=== PATIENT | male | born 1945 | race Caucasian/White ===

== ENCOUNTER 2020-05-09 12:59 | Emergency (ER) | payer MEDICARE, OTHER, SELFPAY ==
[2020-05-09 13:13] VITALS: BP 125/61; PULSE 61; RESP 16; TEMP 36.5; O2SAT 96
--- NOTE | 2020-05-09 13:17 | DI.RAD.S_ITS ---
PROCEDURE: XR FINGER LT MIN 2V INDICATIONS: cut by table saw TECHNIQUE: AP hand, 2 views of the 2nd finger(s) acquired. COMPARISON: None. FINDINGS: Bones: There is a laceration seen in the distal phalanx of the 2nd finger, with missing bone and soft tissue bone fragments. Degenerative changes are seen throughout, which are most prominent involving the 1st carpometacarpal joint. Milder degenerative changes are seen elsewhere. Soft tissues: Associated soft tissue injury is seen. IMPRESSION: Laceration/amputation injury of the distal phalanx of the 2nd finger. Dictated by: Markie Austin M.D. on 05/09/2020 at 12:58 Approved by: Markie Austin M.D. on 05/09/2020 at 12:59
[2020-05-09] MEDS: TET,DIPH,PERTUSS(ACELL),VAC/PF 0.5 ML SYRINGE IM (15:19)
--- NOTE | 2020-05-09 15:19 | ED.UPPEXIN ---
HPI - Extremity Injury (Upper) <Cris Bryan PA-C - Last Filed: 05/09/20 23:10> General Chief Complaint: Extremity Injury, Upper Stated Complaint: wound to index finger left hand Time Seen by Provider: 05/09/20 15:18 Source: patient Mode of arrival: Ambulatory Limitations: no limitations History of Present Illness HPI narrative: This is a 74-year-old gentleman who presents to the emergency department complaining of injury to his left index finger sustained by a table saw today. He states that he had his left hand forward in front of the blade guiding piece of wood and the wood caught and pulled back towards the blade bringing his finger tip into the blade. He was able to control the bleeding with direct pressure and wrapping with a clean towel. He denies any other injury, this is an isolated complaint. He says his pain is not severe ?I can tolerate a lot of pain? does not want anything for pain except maybe for later after he is discharged. He denies any previous injury or surgery to this finger. MD complaint: injury to: left and finger (index) Onset (ago): hour(s) (1) Other Extremity Injury: Left: fingers (2nd) Other injuries: none Place: home Severity: moderate Severity scale (1-10): 3 Relieving factors: immobilization and rest Exacerbating factors: movement of extremity Context: other (Table saw blade injury) Associated symptoms: denies other symptoms Treatments prior to arrival: bandage Related Data Previous Rx's Medication Instructions Recorded amoxicillin-pot clavulanate 1 tab PO BID #14 tab 05/09/20 oxycodone-acetaminophen [Percocet] 1 tab PO Q4-6H PRN #14 tab 05/09/20 Review of Systems <Cris Bryan PA-C - Last Filed: 05/09/20 23:10> Review of Systems Narrative: GENERAL: Denies chills, fatigue, malaise, fever, sweats. HEENT: Denies sinus pain, ear pain, sore throat, difficulty swallowing, dizziness. RESPIRATORY: Denies dyspnea, cough, wheezing, hemoptysis, sputum. CARDIOVASCULAR: Denies chest pain, palpitations, orthopnea, edema, GASTROINTESTINAL: Denies nausea, vomiting, abdominal pain, diarrhea, constipation, melena. : Denies dysuria, frequency, incontinence, hematuria, urinary retention. MUSCULOSKELETAL: Positive for partial avulsion to his left index finger at the tip, denies weakness, joint pain, or bony pain SKIN: See MSK Denies rash, skin lesions, or other NEUROLOGIC: Denies weakness, headache, numbness, change in speech, confusion, seizures, incoordination. PSYCHIATRIC: No concerning psychosocial issues. 12 point review of systems is negative except for those stated above ROS Unobtainable: All systems reviewed & are unremarkable except as noted in HPI and below Patient History <Cris Bryan PA-C - Last Filed: 05/09/20 23:10> Social History Smoking Status: Never smoker Smoking Status: Never smoker alcohol intake frequency: 0-2 drinks per day Substance Use Type: does not use Exam <Cris Bryan PA-C - Last Filed: 05/09/20 23:10> Narrative Exam Narrative: GENERAL: 74 year old patient appears stated age. Well-nourished, well-developed patient, in mild distress. HEAD: Atraumatic. Normocephalic. EYES: Pupils equal round and reactive. Extraocular motions intact. No scleral icterus. No injection or drainage. ENT: Nose without bleeding, purulent drainage. Throat without erythema, tonsillar hypertrophy or exudate. Airway patent. NECK: Trachea midline. Non tender CARDIOVASCULAR: Regular rate and rhythm without murmurs, gallops, or rubs. RESPIRATORY: Clear to auscultation. Breath sounds equal bilaterally. No wheezes, rales, or rhonchi. GASTROINTESTINAL: Abdomen soft, non-tender, nondistended. EXTREMITIES: The left 1st finger has a partial amputation with a 3 cm deep laceration running from the lateral to distal finger a anteriorly crossing the finger pad and the medial finger with nail involvement, the nail is shattered, attached but fractured in multiple places. The distal finger tip just anterior to the distal nail is intact with good color, pink and well perfused, and good alignment with the anterior finger pad. Bleeding is controlled. Sensation is reduced, capillary refill cannot be assessed due to damage to nail, range of motion at the DIP is intact. No edema or other joint tenderness. BACK: Nontender without deformity or crepitance. No flank tenderness. NEURO: AOx3. SKIN: No rash or erythema of visible areas Initial Vital Signs Initial Vital Signs: Vital Signs Temperature 97.7 F 05/09/20 13:13 Pulse Rate 61 05/09/20 13:13 Respiratory Rate 16 05/09/20 13:13 Blood Pressure 125/61 05/09/20 13:13 Pulse Oximetry 96 05/09/20 13:13 <Ashanti Roland MD - Last Filed: 05/15/20 07:32> Initial Vital Signs Initial Vital Signs: Vital Signs Temperature 97.7 F 05/09/20 13:13 Pulse Rate 61 05/09/20 13:13 Respiratory Rate 16 05/09/20 13:13 Blood Pressure 125/61 05/09/20 13:13 Pulse Oximetry 96 05/09/20 13:13 Procedures <Cris Bryan PA-C - Last Filed: 05/09/20 23:10> Laceration Repair Laceration 1: Site: upper extremity and hand Side (If applicable): left Size (cm): 3 Description: irregular (Shattered nail with irregular edged laceration medially and curvilinear, deep laceration laterally, ) Depth: simple, single layer (Bone involvement, deep partial avulsion laceration) Local Anesthetic: lidocaine 1% and with bicarb Amount of anesthesia used (mL): 10 (Digital block) Pre-repair: wound explored, irrigated extensively and wound margins revised (Pieces of shattered nail are removed, proximal nail matrix beneath the cuticle remains partially intact) Skin layer closed with: nylon Size (cm): 5-0 Number of sutures: 12 (None subcutaneous) Scores <Cris Bryan PA-C - Last Filed: 05/09/20 23:10> GCS Dee coma scale eye opening: Spontaneous Dee coma scale verbal response: Orientated [place] coma scale motor response: Obey commands [place] coma scale total score: 15 Course <Cris Bryan PA-C - Last Filed: 05/09/20 23:10> Orders Ordered: Discontinued Medications Diphtheria/Tetanus/Acell Pertussis (Adacel) 0.5 ml IM .ONCE ONE Stop: 05/09/20 14:58 Last Admin: 05/09/20 15:19 Dose: 0.5 ml Documented by: CHRIS Lidocaine/Sodium Bicarbonate (Buffered Lidocaine 10 Ml Syr) 10 ml INJ NOW ONE Stop: 05/09/20 15:39 Last Admin: 05/09/20 15:46 Dose: 10 ml Documented by: CHRIS Vital Signs Vital signs: Vital Signs - 8 hr 05/09/20 16:57 Pulse Rate 64 Respiratory Rate 14 Blood Pressure 163/96 H Pulse Oximetry 100 <Ashanti Roland MD - Last Filed: 05/15/20 07:32> Orders Ordered: Discontinued Medications Diphtheria/Tetanus/Acell Pertussis (Adacel) 0.5 ml IM .ONCE ONE Stop: 05/09/20 14:58 Last Admin: 05/09/20 15:19 Dose: 0.5 ml Documented by: CHRIS Lidocaine/Sodium Bicarbonate (Buffered Lidocaine 10 Ml Syr) 10 ml INJ NOW ONE Stop: 05/09/20 15:39 Last Admin: 05/09/20 15:46 Dose: 10 ml Documented by: CHRIS Vital Signs Vital signs: Vital Signs - 8 hr 05/09/20 16:57 Pulse Rate 64 Respiratory Rate 14 Blood Pressure 163/96 H Pulse Oximetry 100 MDM - Extremity Injury (Upper) <Cris Bryan PA-C - Last Filed: 05/09/20 23:10> Differential Diagnosis Differential diagnosis: Likely dislocation of finger and other (Partial amputation, avulsion, laceration, fracture, open fracture, vascular damage, nerve damage) Medical Records Attestation: I reviewed the patient's medical records. Imaging Data Extremity x-ray #1: Attestation: I personally reviewed and interpreted this imaging study as follows: Radiologist's Impression: [address] [address] XRay Report Signed Patient: Bradley Dodd PMR#: [id number] : 8Acct:[id number] Age/Sex: 74 / MDate of Service: 05/09/20 Loc: ED Accession Number: [id number] Procedure: XR finger LT min 2V Ordering Provider: Ashanti Roland MD PROCEDURE: XR FINGER LT MIN 2V INDICATIONS: cut by table saw TECHNIQUE: AP hand, 2 views of the 2nd finger(s) acquired. COMPARISON: None. FINDINGS: Bones: There is a laceration seen in the distal phalanx of the 2nd finger, with missing bone and soft tissue bone fragments. Degenerative changes are seen throughout, which are most prominent involving the 1st carpometacarpal joint. Milder degenerative changes are seen elsewhere. Soft tissues: Associated soft tissue injury is seen. IMPRESSION: Laceration/amputation injury of the distal phalanx of the 2nd finger. Dictated by: Markie Austin M.D. on 05/09/2020 at 12:58 Approved by: Markie Austin M.D. on 05/09/2020 at 12:[address] [facility] Narrative Medical decision making narrative: Well-appearing 74-year-old presents with complaints of partial amputation of his left 1st finger at the distal tip sustained from a table saw today with bleeding controlled with direct pressure. Wound is cleaned, washed, tetanus is updated, imaging reviewed with attending physician, who also examined the patient, advises removal of the nail fragments and suturing. Distal partial amputation /open fracture with good circulation intact, repaired as above and procedures. Patient advised to follow-up with orthopedics, and at minimum his PCP for wound recheck as well as suture removal. Antibiotic prophylaxis prescribed. Patient is in agreement with the plan, all questions answered. Discharge Plan Departure Patient Disposition: Home Clinical Impression: Partial traumatic amputation of finger through phalanx Qualifiers: Encounter type: initial encounter Qualified Code(s): S68.629A - Partial traumatic transphalangeal amputation of unspecified finger, initial encounter Laceration of left index finger w/o foreign body with damage to nail Qualifiers: Encounter type: initial encounter Qualified Code(s): S61.311A - Laceration without foreign body of left index finger with damage to nail, initial encounter Discharge Date/Time: 05/09/20 17:20 Instructions: DI for Laceration Repair -- Complex Suture, DI for Laceration Repair -- Finger Activity Restrictions/Additional Instructions: Thank you for letting us be part of your care in the emergency department today you partially amputated your finger however you do appear to have good circulation still and anticipate you should heal okay, you do have fragments of bone were your bone was cut that remain inside the end of your finger. It is very important that you take the prescribed antibiotics to avoid developing a infection or infection of your bone. I have also prescribed medication to help you with pain, I recommend that you keep the area bandaged and use the finger splint that we have provided to help give it protection. You should follow-up with the orthopedic provider listed here in your paperwork, you also need to have your sutures removed and your wound rechecked in 8-10 days. You can also see your primary care provider but it would be preferable to see the photo specialist. In the meantime please keep the area clean and dry monitor for signs of infection which can include increased swelling, heat, increased tenderness or pain redness or streaking going up your finger, or pus from your finger. Please also monitor for other symptoms such as fevers, chills body aches nausea vomiting or any other symptoms of concern to you and do not hesitate to seek medical care or return to the emergency department for evaluation if these arise. There is no evidence of an emergent or life threatening illness at this time, but follow up with your doctor in 1-2 days is recommended nonetheless to continue to rule out serious underlying causes of your symptoms. Please call the office for an appointment. Please return to the Emergency Department for any worsening or persistent symptoms. Please take medications as directed. Prescriptions: New oxycodone-acetaminophen [Percocet] 5-325 mg tablet 1 tab PO Q4-6H PRN (Reason: pain) Qty: 14 RF: 0 amoxicillin-pot clavulanate 875-125 mg tablet 1 tab PO BID Qty: 14 RF: 0 Referrals: Tish Orr MD [Physician] - (partial amputation L 2nd digit distal with bone fragments) <Ashanti Roland MD - Last Filed: 05/15/20 07:32> [facility] ED Attending [facility] Attestation: I was immediately available in the department for consultation throughout this patient's visit. I agree with documentation as above. Ashanti Roland MD
[2020-05-09] MEDS: LIDO 1%/SOD BICARB 8.4% (10ML) 10 ML SYRINGE INJ (15:46)
[2020-05-09 16:57] VITALS: BP 163/96; PULSE 64; RESP 14; O2SAT 100
== END 2020-05-09 17:20 | disposition home or self-care (01) ==
PROVIDERS: Emergency Provider Student in an Organized Health Care Education/Training Program
DX: S68.629A Partial traumatic transphalangeal amputation of unspecified finger, initial encounter (principal); W29.3XXA Contact with powered garden and outdoor hand tools and machinery, initial encounter; Z23 Encounter for immunization
CPT/HCPCS: 13132; 29130; 73140; 90471; 99283; 99284; 90715

== ENCOUNTER → 2021-10-21 14:33 | Outpatient (CLI) | payer MEDICARE, OTHER, SELFPAY ==
--- NOTE | 2021-10-21 | DI.ECHO.S_ITS ---
[facility] +---------+ : : [address] : : : : [id number] : : : : Phone: [phone]+ Echocardiogram Report + + :Name: MAYCOL ALLEN Study Date: 10/21/2021 Height: 76 in : :[facility] ReadingLocation: Weight: 207 lb : : Gender: Male BSA: 2.2 m2 : :: 1945 Age: 76 yrs BP: 141/88 mmHg: :Reason For Study: EDEMA : :Ordering Physician: TIFFANIE, : :HARI Performed By: Teodora Mirza : :Referring: HARI MORENO : + + Interpretation Summary Normal left ventricle size with ejection fraction 55-60%. Mildly dilated left atrium. Mild aortic regurgitation. Mild tricuspid regurgitation. Mildly dilated aortic root and ascending aorta. Procedure: A two-dimensional transthoracic echocardiogram with color flow and Doppler was performed. The study quality was technically adequate. There is no prior echocardiogram noted for this patient. The patient was in sinus bradycardia with heart rates between 56-62 bpm during the exam. Left Ventricle: The left ventricle is normal in size and wall thickness. The ejection fraction is estimated to be 55-60%. There are no focal wall motion abnormalities. Diastolic parameters suggest a relaxation abnormality of the left ventricle, consistent with probable normal filling pressures. Right Ventricle: The right ventricle is normal in size and function. Atria: The left atrium is mildly dilated. Right atrial size is normal. There is no Doppler evidence for an interatrial shunt. Mitral Valve: The mitral valve is normal in structure and function. There is trace mitral regurgitation. Aortic Valve: The aortic valve is trileaflet. The aortic valve opens well. There is no aortic valve stenosis. There is mild aortic regurgitation. Tricuspid Valve: The tricuspid valve is normal in structure and function. There is mild tricuspid regurgitation. Pulmonic Valve: The pulmonic valve leaflets are thin and pliable; valve motion is normal. There is mild pulmonic regurgitation. Great Vessels: The aortic root is mildly dilated. The ascending aorta is mildly enlarged. The IVC is of normal diameter and collapses greater than 50% with a sniff. This suggests a low right atrial pressure of 3 mm Hg. Pericardium/ Pleura There is no pericardial effusion. There is no pleural effusion. MMode/2D Measurements & Calculations LVIDd: 5.1 cm LVOT diam: 2.3 cm LVIDs: 3.7 cm Ao root diam: 4.5 cm FS: 28.3 % asc Aorta Diam: 4.0 cm IVSd: 1.0 cm Ao Arch Diam (Prox Trans): 2.4 cm LVPWd: 1.0 cm LV estes. diameter/BSA (cm/m^2): 2.3 LV sys. diameter/BSA (cm/m^2): 1.6 LA A2 area: 23.1 cm2 RA long axis: 6.4 cm LA A4 area: 18.0 cm2 RA area: 17.1 cm2 LA length (vol): 4.5 cm RA vol: 38.5 ml LA vol: 78.0 ml RA : 17.1 ml/m2 LA vol index: 34.7 ml/m2 IVC diam: 1.5 cm RVD1 (basal): 3.3 cm RVD2 (mid): 2.9 cm TAPSE: 2.3 cm Doppler Measurements & Calculations Ao V2 max: 110.3 cm/sec LVOT Max Jf: 76.1 cm/sec Ao V2 mean: 81.7 cm/sec LV V1 max P.3 mmHg Ao max P.9 mmHg LV V1 VTI: 15.3 cm Ao mean P.9 mmHg DILMA(I,D): 3.4 cm2 Ao V2 VTI: 18.0 cm DILMA(V,D): 2.8 cm2 sev ratio: 0.85 DILMA indexed to BSA (cm^2/m^2): 1.5 MV E max jf: 38.4 cm/sec PA V2 max: 107.3 cm/sec MV A max jf: 73.3 cm/sec PA V2 mean: 76.7 cm/sec MV E/A: 0.52 PA mean P.6 mmHg Med Peak E' Jf: 5.7 cm/sec PA pr(Accel): 22.5 mmHg E/E' med: 6.7 Lat Peak E' Jf: 3.3 cm/sec E/E' lat: 11.8 E/e' average: 9.2 MV dec time: 0.30 sec SV(LVOT): 61.6 ml Electronically signed by: Jv Ferrari on Reading Physician:10/21/2021 05:52 PM
== END ==
PROVIDERS: Referring Provider Family Medicine; Visit Provider Family Medicine
DX: I08.2 Rheumatic disorders of both aortic and tricuspid valves (principal); I77.810 Thoracic aortic ectasia; R60.9 Edema, unspecified
CPT/HCPCS: 93306

== ENCOUNTER 2024-07-05 13:33 | Day surgery (SDC) | payer MEDICARE, OTHER, SELFPAY ==
[2024-07-04 11:41] VITALS: BMI 25.2
[2024-07-05] MEDS: LACTATED RINGERS 1,000 ML 42 ML IV (14:10)
[2024-07-05] MEDS: ACETAMINOPHEN 325 MG TABLET 975 MG PO (14:19)
[2024-07-05 14:27] VITALS: BP 124/71; PULSE 62; RESP 18; TEMP 36.3; O2SAT 100; BMI 10.9
--- NOTE | 2024-07-05 15:13 | PM.PREOP ---
Pre-operative Note COVID-19 COVID-19 status: Not tested Interval Note History & Physical reviewed/Exam performed by Physician: Yes Changes to H&P: No ASA Class (for procedural sedation): II
[2024-07-05] MEDS: CEFAZOLIN 2 GM/100 ML PREMIX 100 ML IV (15:50)
--- NOTE | 2024-07-05 15:58 | SUR.OPER ---
Supine on padded OR bed and pink pad, head on pillow, arms padded and tucked at sides, legs uncrossed, safety belt at thigh, tape over blanket over lower legs .
[2024-07-05] MEDS: BUPIVACAINE 0.5% W/ EPI (PF) 30 ML VIAL INJ (16:06)
--- NOTE | 2024-07-05 17:03 | PM.OP.1 ---
Operative Date/Time/Diagnoses Date of procedure: 07/05/24 Time of procedure: 17:03 Pre-op diagnosis: Left inguinal hernia Post-op diagnosis: same Procedure & Clinicians Procedure: Laparoscopic left inguinal hernia repair with mesh Same procedure as scheduled: Yes Surgeon: Heber Finch Anesthesia Type: General Operative Notes Procedure in detail: The patient was given preoperative antibiotics. The patient was brought to the operating room, placed on the table in the supine position with the arms tucked and general anesthesia was induced. The abdomen was prepped and draped in the usual fashion. A time-out was performed. A 1 cm transverse incision was created superior to the umbilicus and dissection was carried down to the fascia. The fascia was grasped with a Ly clamp to elevate the abdominal wall. The fascia was scored transversely with cautery. A Peon clamp was used to silva the peritoneum. The Corin port was placed and the abdomen was insufflated to 15 mmHg. The camera was inserted, there was no evidence of any injury from the entry. There was an indirect left inguinal hernia. 5 mm ports were placed under direct vision in the mid left and mid right abdomen. The patient was positioned in Trendelenburg. We created left peritoneal flap. The peritoneum was dissected off the left cord structures and the Waldemar's ligament was exposed. A large left Bard mesh was brought in and placed over the defect with the medial edge against Waldemar's ligament. We then closed the peritoneal flap with a running 3-0 barbed suture. We took one last look around the abdomen and saw no other abnormalities. The suture was removed and accounted for. The 5 mm ports were removed under direct vision. The abdomen was desufflated. The Corin port was removed. Additional local was injected into the fascia and the fascial incision was closed with 2 interrupted 0 Vicryl sutures. The skin incisions were closed with 4 Monocryl, Steri-Strips and Band-Aids. Post-operative Condition: stable Disposition: PACU
[2024-07-05 17:08] VITALS: BP 134/77; PULSE 81; RESP 12; TEMP 36.7; O2SAT 97
[2024-07-05 17:14] VITALS: BP 123/67; PULSE 72; RESP 13; TEMP 36.7; O2SAT 95
[2024-07-05 17:21] VITALS: BP 125/68; PULSE 70; RESP 12; TEMP 36.6; O2SAT 95
[2024-07-05 17:33] VITALS: BP 122/69; PULSE 71; RESP 15; TEMP 36.6; O2SAT 98
== END 2024-07-05 17:49 | disposition home or self-care (01) ==
PROVIDERS: PCP Family Medicine; Referring Provider Surgery; Visit Provider Surgery
PROC: 0YQ64ZZ Repair Left Inguinal Region, Percutaneous Endoscopic Approach (ICD-10-PCS; CPT 49650; principal; 2024-07-05 15:15)
DX: K40.90 Unilateral inguinal hernia, without obstruction or gangrene, not specified as recurrent (principal)
CPT/HCPCS: 49650; J0690; J1100; J1885; J2405; J2704; J3010

== ENCOUNTER 2024-09-02 14:50 | Observation (INO) | payer MEDICARE, OTHER, SELFPAY ==
[2024-09-02] VITALS (10 sets, daily range): BP systolic 125–143; BP diastolic 73–88; PULSE 54–64; RESP 14–24; TEMP 36.4–37.4; O2SAT 96–98; BMI 25.6
--- NOTE | 2024-09-02 15:01 | DI.RAD.S_ITS ---
PROCEDURE: XR CHEST 1V INDICATIONS: chest pain TECHNIQUE: One view of the chest was acquired. COMPARISON: None. FINDINGS: Surgical changes and devices: None. Lungs and pleura: No dense consolidation or pleural effusions. Possible basal atelectasis or scarring. Mediastinum: Normal heart size Bones and chest wall: Degenerative changes IMPRESSION: Possible basal atelectasis versus scarring. No acute radiographic abnormality on this single view study Dictated by: Je Lewis M.D. on 09/02/2024 at 15:58 Approved by: Je Lewis M.D. on 09/02/2024 at 15:59
--- NOTE | 2024-09-02 15:05 | EKG_ITS ---
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
--- NOTE | 2024-09-02 15:06 | ED.DIZZY ---
HPI - Dizziness General Chief Complaint: Dizziness Stated Complaint: Dizzyness Time Seen by Provider: 09/02/24 15:05 Source: patient and family Mode of arrival: Family Vehicle Limitations: no limitations History of Present Illness HPI Narrative: 78-year-old male no reported medical issues presents with complaint of feeling balance and sort of walking off to the right. Patient states this started about 130 this afternoon has been persistent. States he does not really have a headache he does feel dizzy he denies any difficulty or worsening symptoms with movement of his head suddenly. No ear pain. No chest pain or shortness of breath. No nausea vomiting. No lightheadedness or passing out. No numbness, tingling or weakness of extremities no changes to speech or facial droop. His appreciates that he sort of goes to the side when he walks no dragging or weakness of extremities are noted for her either. Patient states no daily medications. Had a hernia repair about a month ago and prior history of knee replacement. No aspirin or thinners. No tobacco has a glass of wine nightly, no recreational drugs. Related Data Home Medications Medication Instructions Recorded Confirmed multivitamin (Daily Multi-Vitamin 1 tab PO DAILY 06/29/24 07/25/24 tablet) Previous Rx's Medication Instructions Recorded sodium,potassium,mag sulfates 17.5 See Rx Instructions PO .COMPLEX 08/25/24 gram-3.13 gram-1.6 gram oral soln #354 mL (Suprep Bowel Prep Kit) Allergies Allergy/AdvReac Type Severity Reaction Status Date / Time No Known Drug Allergies Allergy Verified 07/25/24 10:37 Review of Systems Review of Systems ROS Unobtainable: All systems reviewed & are unremarkable except as noted in HPI and below Patient History Medical History Pelvic fracture (1998) Surgical History Hx of hernia repair H/O pelvic surgery (1998) Social History household members: spouse Smoking Status: Never smoker alcohol intake: current Smoking Status: Never smoker alcohol intake frequency: 0-2 drinks per day Exam Narrative Exam Narrative: GEN: well nourished, well appearing male, alert and oriented x 3, patient appears to be in mild distress. HEENT: Atraumatic, pupils are equal round reactive to light, extraocular movements are intact, nares are clear, TMs are clear with no fluid, there is no conjunctival pallor. Throat is clear without any exudates, erythema, tonsillar enlargement or uvular deviation, no facial droop HEART: Regular rate and rhythm without murmur, clicks, rubs. No carotid bruits, pulses are equal in upper and lower extremities LUNGS:Lungs clear to auscultation, no wheezes, rales, crackles, chest moves symmetrically ABD:bowel sounds normal, soft, non-tender, no guarding, rebound, rigidity, no masses noted, no hepatosplenomegaly :No CVA tenderness MSCL: Non-tender, no muscle atrophy, muscles strength 5/5 upper and lower extremities, full range of motion. NEURO:CN 2-12 intact, sensation normal, finger nose finger test normal, heel lambert test normal. Initial Vital Signs Initial Vital Signs: Vital Signs Temperature 98 F 09/02/24 14:54 Pulse Rate 62 09/02/24 14:54 Respiratory Rate 16 09/02/24 14:54 Blood Pressure 143/88 H 09/02/24 14:54 Pulse Oximetry 98 09/02/24 14:54 Oxygen Delivery Method Room Air 09/02/24 14:54 Scores NIH Stroke Scale Level of Conciousness: Alert, keenly responsive Ask month/age: Answers both questions correctly. Open/close eyes, close hand: Performs both tasks correctly Best gaze horizontal: Normal Visual garner: No visual loss Facial palsy: Normal symetrical movement Left arm drift: No drift for full 10 sec Right arm drift: No drift for full 10 sec Left leg drift: No drift for full 5 sec Right leg drift: No drift for full 5 sec Limb ataxia: Absent Sensory on face/arms/legs: Normal, no sensory loss Best language: No aphasia, normal Dysarthria: Normal Extinction or inattention: No abnormality Total NIH Stroke scale score: 0 Course Orders Ordered: ED Orders 09/02/24 15:01 XR chest 1V Stat EKG-12 Lead Stat 09/02/24 15:05 Complete Blood Count AUTO DIFF Stat Comprehensive Metabolic Panel Stat Ethanol (ETOH) Stat Lipase Stat Magnesium Stat NT-proBNP (BNP-Adult 18+) Stat PTT Partial Thromboplastin Tito Stat Prothrombin Time INR Stat Troponin & CK Cardiac Panel Stat 09/02/24 15:[address] angio head and neck Stat 09/02/24 15:58 MR head/brain wo con Stat 09/02/24 16:05 Urine Drug Screen, Rapid Stat 09/02/24 16:06 Urinalysis and Microscopic Stat Acetaminophen (Acetaminophen 325 Mg Tablet) 650 mg PO Q6H PRN PRN Reason: Fever/Mild Pain (1-3) Aspirin (Aspirin Ec 81 Mg Tablet) 81 mg PO DAILY REYES Atorvastatin Calcium (Atorvastatin 20 Mg Tablet) 80 mg PO BEDTIME REYES Clopidogrel Bisulfate (Clopidogrel 75 Mg Tablet) 75 mg PO DAILY [facility] Heparin Sodium (Porcine) (Heparin 5,000 Unit/Ml Vial) 5,000 unit SUBCUT BID REYES Naloxone HCl (Naloxone 0.4 Mg/Ml Vial) 0.2 mg IV Q2MIN PRN PRN Reason: Opiate Reversal Discontinued Medications Aspirin (Aspirin 81 Mg Chew Tab) 324 mg PO NOW ONE Stop: 09/02/24 15:02 Aspirin (Aspirin 81 Mg Chew Tab) 324 mg PO NOW ONE Stop: 09/02/24 15:35 Last Admin: 09/02/24 15:56 Dose: 324 mg Documented By: SAL Aspirin (Aspirin 81 Mg Chew Tab) 324 mg PO NOW ONE Stop: 09/02/24 15:02 Last Admin: 09/02/24 15:59 Dose: Not Given Documented By: PASTORA Clopidogrel Bisulfate (Clopidogrel 75 Mg Tablet) 300 mg PO NOW ONE Stop: 09/02/24 15:59 Last Admin: 09/02/24 16:01 Dose: 300 mg Documented By: [facility] Vital Signs Vital signs: Vital Signs - 8 hr 09/02/24 14:54 09/02/24 14:58 09/02/24 14:59 Temperature 98 F Pulse Rate 62 64 Respiratory Rate 16 17 Blood Pressure 143/88 H 143/88 H Pulse Oximetry 98 97 Oxygen Delivery Method Room Air 09/02/24 14:59 09/02/24 15:00 09/02/24 15:00 Temperature Pulse Rate 63 62 Respiratory Rate 19 15 Blood Pressure 125/78 Pulse Oximetry 97 97 Oxygen Delivery Method 09/02/24 15:22 09/02/24 15:22 09/02/24 15:30 Temperature Pulse Rate 62 60 Respiratory Rate 24 16 Blood Pressure 139/73 Pulse Oximetry 96 97 Oxygen Delivery Method 09/02/24 16:00 Temperature Pulse Rate 63 Respiratory Rate 20 Blood Pressure Pulse Oximetry 98 Oxygen Delivery Method MDM - Dizziness Lab Data 09/02/24 15:05 09/02/24 15:05 Labs: Lab Results 09/02/24 09/02/24 09/02/24 Range/Units 15:05 16:05 16:06 WBC 7.5 (4.5-11.0) X10^3/uL RBC 4.37 L (4.5-5.9) X10^6/uL Hgb 13.9 (13.5-17.5) g/dL Hct 40.8 L (41-53) % MCV 93.5 (80-100) fL MCH 31.8 (26-34) PG MCHC 34.0 (30-36) % RDW 14.2 (11.6-14.8) % Plt Count 170 (150-400) X10^3/uL Neut % (Auto) 51.7 (50-75) % Lymph % (Auto) 38.2 (25-40) % [place] % (Auto) 7.7 (3-14) % Eos % (Auto) 1.5 L (2-4) % Baso % (Auto) 0.9 (0-2) % Neut # (Auto) 3900 (5480-7101) /uL Lymph # (Auto) 2900 (4589-7746) /uL [place] # (Auto) 600 (0-900) /uL Eos # (Auto) 100 (0-450) /uL Baso # (Auto) 100 (0-100) /uL PT 12.3 (9.4-12.5) SECONDS INR 1.1 (0.9-1.3) APTT 32 (25.1-36.5) SECONDS Sodium 135 L (137-145) mmol/L Potassium 4.4 (3.4-5.1) mmol/L Chloride 104 (98-107) mmol/L Carbon Dioxide 26 (22-32) mmol/L BUN 23 H (9-20) mg/dL Creatinine 1.05 (0.66-1.25) mg/dL Estimated GFR > 60 (>60) mL/min BUN/Creatinine Ratio 21.9 (6-22) Glucose 92 (80-110) mg/dL Calcium 9.5 (8.4-10.2) mg/dL Magnesium 1.9 (1.6-2.3) mg/dL Total Bilirubin 0.6 (0.2-1.3) mg/dL AST 39 (17-59) IU/L ALT 28 (<50) IU/L Alkaline Phosphatase 78 (38-126) U/L Total Creatine Kinase 146 (55-170) U/L Troponin I < 0.012 (0.01-0.034) ng/mL NT-Pro-B Natriuret Pep 56 (<450) pg/mL Total Protein 7.0 (6.3-8.2) g/dL Albumin 4.3 (3.5-5.0) g/dL Globulin 2.7 (1.7-4.1) g/dL Albumin/Globulin Ratio 1.6 (1.0-2.8) Lipase 99 (23-300) U/L Urine Color Yellow Urine Appearance Clear Ur Specific [place] 1.010 (1.000-1.035) Urine Protein Negative (Negative) Urine Glucose (UA) Negative (Negative) g/dL Urine Ketones Negative (NEGATIVE) Urine Occult Blood Negative (Negative) Urine Nitrate Negative (Negative) Urine Bilirubin Negative (NEGATIVE) Urine Urobilinogen 0.2 (0.2) E.U./dL Ur Leukocyte Esterase Negative (NEGATIVE) Urine RBC None seen (0-5/HPF) Urine WBC None seen (0-5/HPF) Ur Squamous Epith Cells None seen (0-5/HPF) Urine Bacteria None seen (None) Ur Culture Indicated? Cult not indicated Vol Urine Centrifuged 10ml (spun) U Opiates 300ng/mL cut Negative (Negative) Ur Oxycodone Screen Negative (Negative) Urine Methadone Screen Negative (Negative) Ur Barbiturates Screen Negative (Negative) U Tricyclic Antidepress Negative (Negative) Ur Phencyclidine Scrn Negative (Negative) Ur Amphetamines Screen Negative (Negative) U Methamphetamines Scrn Negative (Negative) Ur MDMA Scrn (Ecstasy) Negative (Negative) U Benzodiazepines Scrn Negative (Negative) Urine Cocaine Screen Negative (Negative) U Marijuana (THC) Screen Negative (Negative) Urine pH Normal 5.5 (Normal) Urine Specific [place] Normal (Normal) Ethyl Alcohol < 10 ( - 10) mg/dL Ur Creatinine Normal (Normal) Point of Care Testing Glucose POC 85 ECG Data Attestation: I personally reviewed and interpreted this ECG as follows: Prior ECG tracings: not available for review Interpretation: Sinus rhythm occasional PVC rate of 65 HI 92, QRS 82 QTC 432, no acute ST changes appreciated. No priors for comparison. MDM Narrative Medical decision making narrative: 78-year-old male presents with complaint of feeling off balance and sort of walking off to the side he has no other real complaints he notices some dizziness or what sounds like some vertigo. He has a pressure of 143/88 otherwise normal vital signs. Patient's NIH at this time is 0. On ambulation trial patient clearly lists to the right no clear obvious weakness but he clearly has difficulty with ambulation he states he has not had any improvement since onset. Blood sugar poc is 86. Code stroke initiated. CT head non-con, negative for acute change. Radiology called results at 1526 CT head and neck angio is negative. Labs white count of 7.5 hemoglobin of 13.9 platelets of 170. INR is 1.1, CMP shows a sodium 135 potassium 4.4 chloride of 104 CO2 of 26 BUN 23 creatinine 1.05 glucose 92 LFTs are negative troponin less 0.012. BNP 56. Urine EKG shows sinus rhythm. No priors. Page tele stroke/[facility] [place] @ [id number]. Spoke with Dr. Beltran with Neurology reviewed patient's NIH is 0 but clearly has some difficulty with walking his right side. Tends to go were fall to the right side. After discussion she does not recommend TNK based on patient's low NIH score and notes patient has or less than 3 or 4 there higher risk for bad outcome versus benefit from receiving TNK. Notes if patient is adamant to receive TNK she would be happy to meet with them. She does recommend aspirin 325 mg and Plavix 300 mg today followed by 81 mg aspirin daily and 75 mg Plavix times 21 days for dual antiplatelet therapy as well as stroke workup. Discussed with patient and family patient is not quite sure he would want received TNK either and after discussion feels comfortable this plan. We will try to obtain MR here in the department. Spoke with Dr. Burrell, hospitalist who accepts for suspected stroke. Discharge Plan Departure Patient Disposition: Admitted as Observation Clinical Impression: Acute CVA (cerebrovascular accident), Balance problem Admit Date/Time: 09/02/24 16:10 Admit Provider: Jesus Alberto Burrell
--- NOTE | 2024-09-02 15:12 | DI.CT.S_ITS ---
PROCEDURE: CT STROKE INDICATIONS: off balance, leans R when walking onset 1330 TECHNIQUE: Noncontrast 4.5 mm thick angled axial sections acquired from the foramen magnum to the vertex, with coronal reformats. For radiation dose reduction, the following was used: automated exposure control, adjustment of mA and/or kV according to patient size. COMPARISON: None. FINDINGS: Image quality: Diagnostic. CSF spaces: Basal cisterns are patent. No extra-axial fluid collections. The ventricles are symmetric in size and shape. Brain: No intracranial bleeds or masses. There is cerebral volume loss for age, with resultant ventricular and sulcal prominence. There are moderate periventricular and deep white matter chronic small vessel ischemic changes. There is intracranial internal carotid artery atherosclerosis. Skull and face: Calvarium and visualized facial bones appear intact, without suspicious lesions. Sinuses: Remote paranasal surgery. Right maxillary sinus mucosal thickening and minimal fluid. IMPRESSION: No acute intracranial pathology. Minimal acute on chronic sinus disease. Comment: Findings were discussed with Dr. Figueroa on 09/02/2024 at 1526 hours This study fulfills neurological imaging criteria for inclusion or exclusion of acute stroke therapies based on available published neurological guidelines. Dictated by: Sanjay Mendenhall M.D. on 09/02/2024 at 15:22 Approved by: Sanjay Mendenhall M.D. on 09/02/2024 at 15:26
--- NOTE | 2024-09-02 15:12 | DI.CT.S_ITS ---
PROCEDURE: CT ANGIO HEAD AND NECK INDICATIONS: off balance, leans R when walking onset 1330 TECHNIQUE: After the administration of intravenous contrast, 1 mm thick sections acquired from the aortic arch through the [place] of [place]. 3-dimensional kfilfil-zlxfeeram-saankzycwg (MIP) and/or volume rendering reformats were acquired of the central intracranial vasculature and neck separately. For radiation dose reduction, the following was used: automated exposure control, adjustment of mA and/or kV according to patient size. COMPARISON: [facility], CT, CT STROKE, 09/02/2024, 15:14. FINDINGS: Image quality: Diagnostic HEAD ANGIOGRAPHY: Anterior circulation: ICAs: Mild cavernous and supraclinoid calcifications ACAs: Patent. The left SOUMYA is slightly larger than the right. MCAs: Patent AComm: No aneurysm Venous sinuses: No occlusive thrombus where visualized Posterior circulation: Dominance: Left Vertebral arteries: Patent Basilar artery: Patent PComms: No aneurysm dosier operator: High-grade focal narrowing in the mid left ECOLOGY PROFESSOR in the P2 segment NECK ANGIOGRAPHY: Aortic arch and subclavian arteries: Mild calcifications CCAs: Mild calcifications ICA origins (by NASCET criteria): Mild calcifications without narrowing ICAs: Patent ECAs: Patent Vertebral arteries: Patent. Mild calcification at the left origin. The right vertebral artery terminates in PICA before the basilar confluence. Soft tissues: No significant mass, aneurysm, or lymphadenopathy Lung apices: No apical pneumothorax. Bones: There are degenerative changes. Partial opacification of the right maxillary with hyperostosis. 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 Basilar vertebral circulation is otherwise patent, with left dominant supply. No large vessel occlusion in the anterior circulation. If there is further concern, consider MRI. Partial opacification of the right maxillary, likely chronic with hyperostosis. Any quantitative measurements of stenosis were performed using NASCET criteria. Dictated by: Je Lewis M.D. on 09/02/2024 at 16:01 Approved by: Je Lewis M.D. on 09/02/2024 at 16:06
[2024-09-02 15:15] LABS: Add Manual Diff / Slide Review NO; Basophils Absolute Auto 100 /uL (0-100); Basophils Percent Auto 0.9 % (0-2); Eosinophils Absolute Auto 100 /uL (0-450); Eosinophils Percent Auto 1.5 % (2-4); Hematocrit 40.8 % (41-53); Hemoglobin 13.9 g/dL (13.5-17.5); Lymphocytes Absolute Auto 2900 /uL (1100-4500); Lymphocytes Percent Auto 38.2 % (25-40); Mean Corpuscular Hemoglobin 31.8 PG (26-34); Mean Corpuscular Volume 93.5 fL (80-100); Monocytes Absolute Auto 600 /uL (0-900); Monocytes Percent Auto 7.7 % (3-14); Neutrophils Absolute Auto 3900 /uL (1500-7000); Neutrophils Percent Auto 51.7 % (50-75); Platelet Count 170 X10^3/uL (150-400); Red Blood Cell Count 4.37 X10^6/uL (4.5-5.9); Red Cell Distribution Width 14.2 % (11.6-14.8); White Blood Cell Count 7.5 X10^3/uL (4.5-11.0)
[2024-09-02 15:24] LABS: INR 1.1 (0.9-1.3); Prothrombin Time 12.3 SECONDS (9.4-12.5)
[2024-09-02 15:27] LABS: PTT Partial Thromboplastin Tim 32 SECONDS (25.1-36.5)
[2024-09-02 15:30] LABS: Alanine Aminotransferase 28 IU/L (<50); Albumin 4.3 g/dL (3.5-5.0); Albumin Globulin Ratio 1.6 (1.0-2.8); Alkaline Phosphatase 78 U/L (38-126); Aspartate Aminotransferase 39 IU/L (17-59); BUN Creatinine Ratio 21.9 (6-22); Bilirubin Total 0.6 mg/dL (0.2-1.3); Blood Urea Nitrogen 23 mg/dL (9-20); Calcium 9.5 mg/dL (8.4-10.2); Carbon Dioxide 26 mmol/L (22-32); Chloride 104 mmol/L (98-107); Creatine Kinase 146 U/L (55-170); Estimated Glomerular Filt Rate > 60 mL/min (>60); Globulin 2.7 g/dL (1.7-4.1); Glucose 92 mg/dL (80-110); HEMOLYSIS < 15 (0-50); Lipase 99 U/L (23-300); Magnesium 1.9 mg/dL (1.6-2.3); Potassium 4.4 mmol/L (3.4-5.1); Sodium 135 mmol/L (137-145)
[2024-09-02 15:38] LABS: Ethanol (ETOH) < 10 mg/dL
[2024-09-02 15:42] LABS: NT-proBNP (BNP-Adult 18+) 56 pg/mL (<450); Troponin I < 0.012 ng/mL (0.01-0.034)
[2024-09-02] MEDS: ASPIRIN 81 MG CHEW TAB 324 MG PO (15:56)
--- NOTE | 2024-09-02 15:58 | DI.MRI.S_ITS ---
PROCEDURE: MR HEAD/BRAIN WO CON INDICATIONS: balance/ambulation problem/leans to R TECHNIQUE: Noncontrast axial T1 spin echo, axial T2 fast spin echo, sagittal and axial FLAIR, coronal T2 fast spin echo, axial gradient echo, axial diffusion and ADC through the brain. COMPARISON: , CT, CT STROKE, 09/02/2024, 15:14. FINDINGS: Image quality: Diagnostic CSF spaces: Basal cisterns are patent. Lateral ventricles are symmetric. Volume: Volume loss. Periventricular white matter signal abnormality most commonly seen with small vessel disease. These findings are [id number] Brain: No confluent area of edema. There is no acute infarct on diffusion images. No significant hematoma. Craniofacial structures: Partially seen right maxillary opacity. Lens replacements. IMPRESSION: No acute diffusion restriction to indicate infarct. No acute hematoma. Dictated by: Je Lewis M.D. on 09/02/2024 at 16:41 Approved by: Je Lewis M.D. on 09/02/2024 at 16:43
[2024-09-02] MEDS: CLOPIDOGREL 75 MG TABLET 300 MG PO (16:01)
--- NOTE | 2024-09-02 16:22 | DI.ECHO.S_ITS ---
[facility] +---------+ Hospital : : [address] : : [place] : : [id number] : : Phone: [phone] Echocardiogram Report + + :Name: MAYCOL ALLEN Study Date: 09/03/2024 Height: 75 in : :Hospital ReadingLocation: Weight: 205 lb : : Gender: Male BSA: 2.2 m2 : :: 1945 Age: 78 yrs BP: 143/75 mmHg: :Reason For Study: CVA : :Ordering Physician: KEYLA, : :TAYLOR Cotter Performed By: Cuco Machado : :Referring: TAYLOR RAMIRES : + + Interpretation Summary The left ventricle is normal in size. Left ventricular systolic function is borderline reduced. The ejection fraction is estimated to be 45-50%. LVEF has decreased since prior study. Probably hypokinesis along the basal to mid inferolateral segments. Wall motion abnormality is new since prior study. Diastolic parameters suggest a relaxation abnormality of the left ventricle, consistent with probable normal filling pressures. The right ventricle is mildly dilated. The right ventricular systolic function is normal. The right ventricular systolic pressure is estimated to be at least 34 mmHg based on an estimated right atrial pressure of 8 mm Hg. The left atrial size is normal. There is mild aortic regurgitation. There is no other significant valvular heart disease. The aortic root is mildly dilated. The ascending aorta is mildly enlarged. Procedure: A two-dimensional transthoracic echocardiogram with color flow and Doppler was performed. The study quality was technically good. Comparison is made with the echocardiogram of 10/21/2021. The patient was in normal sinus rhythm during the exam. Left Ventricle: The left ventricle is normal in size. There is normal left ventricular wall thickness. There is no ventricular septal defect visualized. Left ventricular systolic function is borderline reduced. The ejection fraction is estimated to be 45-50%. Probably hypokinesis along the basal to mid inferolateral segments. Wall motion abnormality is new since prior study. Diastolic parameters suggest a relaxation abnormality of the left ventricle, consistent with probable normal filling pressures. Right Ventricle: The right ventricle is mildly dilated. The right ventricular systolic function is normal. Atria: The left atrial size is normal. The right atrium is mildly dilated. There is no Doppler evidence for an interatrial shunt. Mitral Valve: The mitral valve leaflets appear normal. There is no evidence of stenosis, fluttering, or prolapse. There is trace mitral regurgitation. Aortic Valve: The aortic valve is trileaflet. The aortic valve opens well. There is mild aortic regurgitation. Tricuspid Valve: The tricuspid valve leaflets are thin and pliable. There is trace tricuspid regurgitation. The right ventricular systolic pressure is estimated to be at least 34 mmHg based on an estimated right atrial pressure of 8 mm Hg. Pulmonic Valve: The pulmonic valve is not well seen, but is grossly normal. There is no pulmonic valvular regurgitation. There is no other significant valvular heart disease. Great Vessels: The aortic root is mildly dilated. The ascending aorta is mildly enlarged. The pulmonary artery is not well visualized, but is probably normal size. The IVC is dilated (diameter is greater than 2.1 cm) yet it collapses greater than 50% with a sniff. This suggests a right atrial pressure of 8 mm Hg. Pericardium/ Pleura There is no pericardial effusion. MMode/2D Measurements & Calculations LVIDd: 5.8 cm LVOT diam: 2.4 cm LVIDs: 4.4 cm Ao root diam: 4.2 cm FS: 23.6 % asc Aorta Diam: 4.0 cm EPSS: 1.4 cm IVSd: 0.99 cm LVPWd: 1.0 cm LV estes. diameter/BSA (cm/m^2): 2.6 LV sys. diameter/BSA (cm/m^2): 2.0 LA A2 area: 21.5 cm2 RA long axis: 6.9 cm LA A4 area: 17.5 cm2 RA area: 25.4 cm2 LA length (vol): 5.1 cm RA vol: 79.8 ml LA vol: 62.1 ml RA : 36.0 ml/m2 LA vol index: 28.0 ml/m2 IVC diam: 2.9 cm RVD1 (basal): 4.6 cm RVD2 (mid): 4.2 cm TAPSE: 1.8 cm Doppler Measurements & Calculations Ao V2 max: 123.2 cm/sec LVOT Max Jf: 95.2 cm/sec Ao V2 mean: 88.3 cm/sec LV V1 max P.6 mmHg Ao max P.1 mmHg LV V1 VTI: 20.0 cm Ao mean P.4 mmHg DILMA(I,D): 3.4 cm2 Ao V2 VTI: 25.9 cm DILMA(V,D): 3.4 cm2 sev ratio: 0.77 DILMA indexed to BSA (cm^2/m^2): 1.5 MV E max jf: 35.6 cm/sec TR max jf: 253.0 cm/sec MV A max jf: 75.4 cm/sec TR max P.6 mmHg MV E/A: 0.47 PA V2 max: 71.3 cm/sec Med Peak E' Jf: 4.1 cm/sec PA V2 mean: 49.8 cm/sec E/E' med: 8.8 PA mean P.1 mmHg Lat Peak E' Jf: 4.4 cm/sec PA pr(Accel): 15.6 mmHg E/E' lat: 8.0 E/e' average: 8.4 MV dec time: 0.33 sec SV(LVOT): 87.8 ml Reading Physician:10:10 AM
--- NOTE | 2024-09-02 16:22 | P.HP_ITS ---
History of Present Illness History of Present Illness Date Patient Seen: 09/02/24 Time Patient Seen: 17:48 Chief complaint: Dizzyness Narrative: He was a 79-year-old male who is otherwise healthy. He developed acute imbalance this afternoon when o'clock any kept veering to the right while trying to walk. He denies diplopia, headache, numbness or weakness of an arm or a leg. He also denies spinning or a boat rocking sensation. The patient presented to the ED where he had a negative CTA (except for Moderate to high-grade narrowing of the left P2 segment) and negative CT head. He had an NIH score of 0 although his gait did vera to the right. Tele stroke recommended no lytics. He arrived to the floor with improved symptoms and has never had TIA symptoms in the past. He does not smoke, his father did have a stroke at an unknown age. He drinks about 3 glasses of wine a day. He was on no chronic prescriptions and denies history of diabetes, or hypertension. He denies a history of positional vertigo or other types of vertigo. No recent URI symptoms. [facility] Medical History Pelvic fracture (1998) Surgical History Hx of hernia repair H/O pelvic surgery (1998) Social History household members: spouse Smoking Status: Never smoker alcohol intake: current Meds Home Medications and Allergies Home Medications Medication Instructions Recorded Confirmed Type multivitamin (Daily Multi-Vitamin 1 tab PO DAILY 06/29/24 07/25/24 History tablet) sodium,potassium,mag sulfates 17.5 See Rx Instructions PO .COMPLEX 08/25/24 Rx gram-3.13 gram-1.6 gram oral soln #354 mL (Suprep Bowel Prep Kit) Allergies Allergy/AdvReac Type Severity Reaction Status Date / Time No Known Drug Allergies Allergy Verified 07/25/24 10:37 Review of Systems Review of Systems Narrative: All else reviewed and otherwise unremarkable except as noted in the history and physical. Exam Vital Signs (past 8 hours): - 09/02/24 14:54 09/02/24 14:58 09/02/24 14:59 Temperature 98 F Pulse Rate 62 64 Respiratory Rate 16 17 Blood Pressure 143/88 H 143/88 H Pulse Oximetry 98 97 Oxygen Delivery Method Room Air 09/02/24 14:59 09/02/24 15:00 09/02/24 15:00 Temperature Pulse Rate 63 62 Respiratory Rate 19 15 Blood Pressure 125/78 Pulse Oximetry 97 97 Oxygen Delivery Method 09/02/24 15:22 09/02/24 15:22 09/02/24 15:30 Temperature Pulse Rate 62 60 Respiratory Rate 24 16 Blood Pressure 139/73 Pulse Oximetry 96 97 Oxygen Delivery Method Oxygen Delivery Method Room Air Narrative Exam Narrative: NAD, alert and oriented, fluent speech, calm. Normocephalic skull, EOMI, anicteric sclera, symmetric pupils. Oropharynx unremarkable, no droop. Neck supple, midline trachea, no adenopathy. Lungs clear, normal rate and effort. Heart regular, no murmur gallop or rub. Abdomen is soft, non distended and non tender. Extremities are free of edema. Skin is free of rash or lesions. Joints are not swollen or deformed. Judgment appears to be normal. Neuro: Cranial nerves are normal, gaze is conjugate. No diplopia. No facial droop. Negative pronator drift, normal arm and leg strength. Normal straight leg raises. Normal rapid alternating movements. Judgment is normal, language is normal. Objective ECG Impression: Sinus rhythm with occasional premature ventricular complexes Imaging Multiple studies:: Radiologist's impression: MRI brain: No acute diffusion restriction to indicate infarct. No acute hematoma. CT brain: No acute intracranial pathology. Minimal acute on chronic sinus disease. CTA head and neck: Moderate to high-grade narrowing of the left P2 segment. Basilar vertebral circulation is otherwise patent, with left dominant supply. No large vessel occlusion in the anterior circulation. If there is further concern, consider MRI. Partial opacification of the right maxillary, likely chronic with hyperostosis. Labs 09/02/24 15:05 09/02/24 15:05 Labs: Laboratory Results - last 24 hr 09/02/24 15:05 WBC 7.5 RBC 4.37 L Hgb 13.9 Hct 40.8 L MCV 93.5 MCH 31.8 MCHC 34.0 RDW 14.2 Plt Count 170 Neut % (Auto) 51.7 Lymph % (Auto) 38.2 [place] % (Auto) 7.7 Eos % (Auto) 1.5 L Baso % (Auto) 0.9 Neut # (Auto) 3900 Lymph # (Auto) 2900 [place] # (Auto) 600 Eos # (Auto) 100 Baso # (Auto) 100 PT 12.3 INR 1.1 APTT 32 Sodium 135 L Potassium 4.4 Chloride 104 Carbon Dioxide 26 BUN 23 H Creatinine 1.05 Estimated GFR > 60 BUN/Creatinine Ratio 21.9 Glucose 92 Calcium 9.5 Magnesium 1.9 Total Bilirubin 0.6 AST 39 ALT 28 Alkaline Phosphatase 78 Total Creatine Kinase 146 Troponin I < 0.012 NT-Pro-B Natriuret Pep 56 Total Protein 7.0 Albumin 4.3 Globulin 2.7 Albumin/Globulin Ratio 1.6 Lipase 99 Ethyl Alcohol < 10 Assessment & Plan Assessment & Plan narrative: 1. High suspicion for a posterior circulation TIA, present on admission and improved. CTA reveals Moderate to high-grade narrowing of the left P2 segment. Plan: -dual antiplatelet therapy for 21 days, start high dose statin. -screening A1c, TSH. -monitor blood pressure, permissive hypertension. -Q shift NIH score Anticipate 1 night in the hospital, observation status. If his symptoms completely improve, I suspect after an echo tomorrow he may be able to discharge home on oral therapy. He lives in [place] with his , she was his proxy decision maker. Full resuscitation. Time-Based Coding :: 35 min spent with patient and on the chart (including review of chart, obtaining history, exam, reviewing outside data, placing orders, documenting exam and treatment plan, and counseling patient) on 09/02. Quality MIPS - Admit I confirm the patient?s Advance Care Plan is present, Code status is documented, Surrogate decision maker is in patient?s record [If Yes, STOP here]: Yes MIPS - Meds 'Current medications' to include all prescriptions, [id number] products, herbals, cannabis/cannabidiol products, and vitamin/mineral/dietary (nutritional) supplements. I have utilized all available resources to obtain, update, or review the patient?s current medications. [If Yes, STOP here]: Yes
[2024-09-02 16:28] LABS: Ur Creatinine Normal (Normal); Ur Specific Gravity Normal (Normal); Urine pH Normal (Normal)
[2024-09-02 16:29] LABS: Urine Amphetamines Negative (Negative); Urine Barbiturates Negative (Negative); Urine Benzodiazepines Negative (Negative); Urine Cocaine Negative (Negative); Urine MDMA Negative (Negative); Urine Methadone Negative (Negative); Urine Methamphetamines Negative (Negative); Urine Opiates Negative (Negative); Urine Oxycodone Negative (Negative); Urine Phencyclidine Negative (Negative); Urine THC Negative (Negative); Urine Tricyclic Antidepressant Negative (Negative)
[2024-09-02 17:02] LABS: Appearance Urine UA CLEAR; Bilirubin Urine UA NEGATIVE (NEGATIVE); Color Urine UA YELLOW; Glucose Urine UA NEGATIVE (Negative); Ketones Urine UA NEGATIVE (NEGATIVE); Leukocyte Esterase Urine UA NEGATIVE (NEGATIVE); Nitrite Urine UA NEGATIVE (Negative); Occult Blood Urine UA NEGATIVE (Negative); Protein Urine UA NEGATIVE (Negative); Urobilinogen Urine UA 0.2 E.U./dL (0.2); pH Urine UA 5.5 (4.5-8.0)
[2024-09-02 17:11] LABS: Bacteria Urine None Seen; Culture Indicated Urine Cult Not Indicated; RBC Urine None Seen (0-5/HPF); Squamous Epithelial Cell Urine None Seen (0-5/HPF); Urine Volume 10mL (spun); WBC Urine None Seen (0-5/HPF)
--- NOTE | 2024-09-02 18:57 | PC.NURSE ---
Patient is A&Ox4, VSS, afebrile on RA (SB 50's on telemetry). He reports feeling dizzy with ambulating, and changing positions. He verbalizes understanding to use call light with ambulating. Admission assesment completed. He tolerated the general diet dinner well.
[2024-09-02] MEDS: HEPARIN 5,000 UNIT/ML VIAL 5000 UNIT SUBCUT (20:16)
[2024-09-02] MEDS: ATORVASTATIN 20 MG TABLET 80 MG PO (20:16)
[2024-09-03 03:00] VITALS: BP 104/59; PULSE 56; RESP 18; TEMP 37; O2SAT 96
[2024-09-03 05:51] LABS: Add Manual Diff / Slide Review NO; Basophils Absolute Auto 100 /uL (0-100); Eosinophils Absolute Auto 200 /uL (0-450); Hematocrit 39.3 % (41-53); Hemoglobin 13.3 g/dL (13.5-17.5); Lymphocytes Absolute Auto 2100 /uL (1100-4500); Mean Corpuscular HGB Conc 33.8 % (30-36); Mean Corpuscular Hemoglobin 31.8 PG (26-34); Monocytes Absolute Auto 500 /uL (0-900); Monocytes Percent Auto 8.7 % (3-14); Neutrophils Absolute Auto 2900 /uL (1500-7000); Neutrophils Percent Auto 50.3 % (50-75); Platelet Count 168 X10^3/uL (150-400); Red Blood Cell Count 4.19 X10^6/uL (4.5-5.9); Red Cell Distribution Width 14.1 % (11.6-14.8); White Blood Cell Count 5.7 X10^3/uL (4.5-11.0)
[2024-09-03 05:57] LABS: Hemoglobin A1C% w Est Avg Glu 5.5 % (4.0-6.0)
[2024-09-03 06:05] LABS: BUN Creatinine Ratio 20.5 (6-22); Blood Urea Nitrogen 18 mg/dL (9-20); Carbon Dioxide 25 mmol/L (22-32); Chloride 106 mmol/L (98-107); Estimated Glomerular Filt Rate > 60 mL/min (>60); Glucose 108 mg/dL (80-110); HEMOLYSIS < 15 (0-50); Potassium 4.2 mmol/L (3.4-5.1); Sodium 134 mmol/L (137-145)
[2024-09-03 08:00] VITALS: BP 143/75; PULSE 61; RESP 14; TEMP 36.9; O2SAT 98
[2024-09-03] MEDS: HEPARIN 5,000 UNIT/ML VIAL 5000 UNIT SUBCUT (08:18)
[2024-09-03] MEDS: ASPIRIN EC 81 MG TABLET PO (08:18)
[2024-09-03] MEDS: CLOPIDOGREL 75 MG TABLET PO (08:18)
--- NOTE | 2024-09-03 10:24 | PT-IP ANOTE ---
per hospitalist during rounds meeting: pt is discharging and not therapy needs. will d/c PT eval order.
--- NOTE | 2024-09-03 10:31 | CM.DANOTE ---
Brief DCP Assessment note Pt is a 78yo M admitted for CVA after having some balance/dizziness. PCP Esa Pedroza Payer Medicare and [employer]. [employer] reviewed EMR. pt lives in [place] with spouse, Leti. indep at baseline. Per hospitalist in morning rounds, pt symptoms resolved. cleared to dc home today, no CM needs. P: dc home today with OP f/u recommended. no identified barriers to safe dc home at this time. CM team will continue to follow as needed LOUIS Hung Discharge Planning/Care Management Advanced directive, confirm from FAMILY Start: 09/02/24 18:50 Freq: Q24H Status: Active Protocol: Document 09/02/24 18:50 SH (Rec: 09/02/24 20:23 SH [id number]) Advance Directive, confirm on record Time 20:23 Person contacted pt Copy received No CM Discharge Assessment Start: 09/03/24 10:28 Freq: Status: Active Protocol: Document 09/03/24 10:30 SL (Rec: 09/03/24 10:31 SL [id number]) Discharge Planning Assessment Assigned Sales Order Specialist LOUIS Dee DPOA/Assigned Designee Name Leti, spouse Contact Information [phone] Advance Directives? Yes Advance Directives on File No History Provided By Patient Prior Living Arrangements House Household Members spouse Type of transporation used prior to Drives own vehicle admit Independent with ADL's Yes Is patient alert and oriented? Yes Barriers to Discharge No Discharge Plan Home Referrals Initiated None needed Review Status In Process Please Provide Date Initial DC 09/03/24 Assessment Was Performed Next Review Type Continued Stay Review
--- NOTE | 2024-09-03 13:20 | P.DS_ITS ---
History of Present Illness History of Present Illness Date Patient Seen: 09/03/24 Time Patient Seen: 09:25 Date of Onset of Symptoms: 09/02/24 Chief complaint: Dizzyness Narrative: He was a 79-year-old male who is otherwise healthy. He developed acute imbalance this afternoon when o'clock any kept veering to the right while trying to walk. He denies diplopia, headache, numbness or weakness of an arm or a leg. He also denies spinning or a boat rocking sensation. The patient presented to the ED where he had a negative CTA (except for Moderate to high-grade narrowing of the left P2 segment) and negative CT head. He had an NIH score of 0 although his gait did vera to the right. Tele stroke recommended no lytics. He arrived to the floor with improved symptoms and has never had TIA symptoms in the past. He does not smoke, his father did have a stroke at an unknown age. He drinks about 3 glasses of wine a day. He was on no chronic prescriptions and denies history of diabetes, or hypertension. He denies a history of positional vertigo or other types of vertigo. No recent URI symptoms. Discharge Providers Provider Date of admission: 09/02/24 16:10 Discharge Date: 09/03/24 Primary care physician: Esa Pedroza MD Consults: 09/02/24 16:20 Consult to Discharge Planning Routine Comment: Consult to Occupational Therapy Evaluate & Treat Comment: Physician Instructions: Evaluate and treat Consult to Physical Therapy Evaluate & Treat Comment: Physician Instructions: Evaluate and Treat Consult to Speech Therapy Evaluate & Treat Comment: Physician Instructions: Evaluate and treat Discharge provider: Sukhdeep Rowell MD Summary Hospital Course Discharge Diagnosis: 1. Transient ischemic attack due to posterior circulation TIA with moderate to high-grade narrowing of the left P2 segment 2. Incidental finding of mildly reduced ejection fraction Hospital Course: 78-year-old man under the primary care of Dr. Esa Pedroza reported that the above-mentioned symptoms resolved within about 4 hours of onset, without recurrence. He was treated with aspirin and clopidogrel with the addition of high-dose atorvastatin therapy. He was monitor on telemetry with no arrhythmias. Blood pressure was within acceptable limits during hospitalization in the 130s/70s range. Outpatient follow-up with his primary care provider's recommended with consideration of noninvasive heart rhythm monitoring to rule out occult atrial fibrillation. The patient was educated regarding emergency management of stroke in the event of recurrent presentation. Recommend dual antiplatelet therapy for 3 weeks, then continue on aspirin monotherapy with atorvastatin. The patient acknowledged understanding, agreement and appreciation of this plan of care. The patient's echocardiography report returned following discharge. Outpatient follow-up and consideration of cardiology consultation regarding mildly reduced ejection fraction is recommended. Status at Discharge Cognitive/behavioral status at discharge: oriented Functional status at discharge: independent ambulation Overall status at discharge: patient is back to baseline Time Spent with Patient Time spent: Greater than 30 minutes Exam Vital Signs (past 8 hours): - 09/03/24 08:00 Temperature 98.4 F Pulse Rate 61 Respiratory Rate 14 Blood Pressure 143/75 H Pulse Oximetry 98 Oxygen Flow Rate 0 Oxygen Delivery Method Room Air Oxygen Flow Rate 0 Narrative Exam Narrative: NAD, alert and oriented, fluent speech, calm. Normocephalic skull, EOMI, anicteric sclera, symmetric pupils. Oropharynx unremarkable, no droop. Neck supple, midline trachea, no adenopathy. Lungs clear, normal rate and effort. Heart regular, no murmur gallop or rub. Abdomen is soft, non distended and non tender. Extremities are free of edema. Skin is free of rash or lesions. Joints are not swollen or deformed. Judgment appears to be normal. Neuro: Cranial nerves are normal, gaze is conjugate. No diplopia. No facial droop. Normal gait testing, walking about room without limitation or gait instability. Negative pronator drift, normal arm and leg strength. Normal straight leg raises. Normal rapid alternating movements. Judgment is normal, language is normal. Objective Imaging *: Radiologist's impression: 1. Chest x-ray 09/02/2024: Possible basal atelectasis versus scarring. No acute radiographic abnormality on this single view study 2. Head CT 09/02/2024: No acute intracranial pathology. Minimal acute on chronic sinus disease. 3. Head/neck CTA 09/02/2024: Moderate to high-grade narrowing of the left P2 segment. Basilar vertebral circulation is otherwise patent, with left dominant supply. No large vessel occlusion in the anterior circulation. If there is further concern, consider MRI. Partial opacification of the right maxillary, likely chronic with hyperostosis. 4. Brain MRI 09/02/2024: No acute diffusion restriction to indicate infarct. No acute hematoma. 5. Echocardiogram 09/02/2024: Procedure: A two-dimensional transthoracic echocardiogram with color flow and Doppler was performed. The study quality was technically good. Comparison is made with the echocardiogram of 10/21/2021. The patient was in normal sinus rhythm during the exam. The left ventricle is normal in size. Left ventricular systolic function is borderline reduced. The ejection fraction is estimated to be 45-50%. LVEF has decreased since prior study. Probably hypokinesis along the basal to mid inferolateral segments. Wall motion abnormality is new since prior study. Diastolic parameters suggest a relaxation abnormality of the left ventricle, consistent with probable normal filling pressures. The right ventricle is mildly dilated. The right ventricular systolic function is normal. The right ventricular systolic pressure is estimated to be at least 34 mmHg based on an estimated right atrial pressure of 8 mm Hg. The left atrial size is normal. There is mild aortic regurgitation. There is no other significant valvular heart disease. The aortic root is mildly dilated. The ascending aorta is mildly enlarged. Labs 09/03/24 05:38 09/03/24 05:38 Labs: Laboratory Results - last 24 hr 09/02/24 09/02/24 09/02/24 15:05 16:05 16:06 WBC 7.5 RBC 4.37 L Hgb 13.9 Hct 40.8 L MCV 93.5 MCH 31.8 MCHC 34.0 RDW 14.2 Plt Count 170 Neut % (Auto) 51.7 Lymph % (Auto) 38.2 [place] % (Auto) 7.7 Eos % (Auto) 1.5 L Baso % (Auto) 0.9 Neut # (Auto) 3900 Lymph # (Auto) 2900 [place] # (Auto) 600 Eos # (Auto) 100 Baso # (Auto) 100 PT 12.3 INR 1.1 APTT 32 Sodium 135 L Potassium 4.4 Chloride 104 Carbon Dioxide 26 BUN 23 H Creatinine 1.05 Estimated GFR > 60 BUN/Creatinine Ratio 21.9 Glucose 92 Hemoglobin A1c Calcium 9.5 Magnesium 1.9 Total Bilirubin 0.6 AST 39 ALT 28 Alkaline Phosphatase 78 Total Creatine Kinase 146 Troponin I < 0.012 NT-Pro-B Natriuret Pep 56 Total Protein 7.0 Albumin 4.3 Globulin 2.7 Albumin/Globulin Ratio 1.6 Lipase 99 TSH Urine Color Yellow Urine Appearance Clear Ur Specific [place] 1.010 Urine Protein Negative Urine Glucose (UA) Negative Urine Ketones Negative Urine Occult Blood Negative Urine Nitrate Negative Urine Bilirubin Negative Urine Urobilinogen 0.2 Ur Leukocyte Esterase Negative Urine RBC None seen Urine WBC None seen Ur Squamous Epith Cells None seen Urine Bacteria None seen Ur Culture Indicated? Cult not indicated Vol Urine Centrifuged 10ml (spun) U Opiates 300ng/mL cut Negative Ur Oxycodone Screen Negative Urine Methadone Screen Negative Ur Barbiturates Screen Negative U Tricyclic Antidepress Negative Ur Phencyclidine Scrn Negative Ur Amphetamines Screen Negative U Methamphetamines Scrn Negative Ur MDMA Scrn (Ecstasy) Negative U Benzodiazepines Scrn Negative Urine Cocaine Screen Negative U Marijuana (THC) Screen Negative Urine pH Normal 5.5 Urine Specific [place] Normal Ethyl Alcohol < 10 Ur Creatinine Normal 09/03/24 05:38 WBC 5.7 RBC 4.19 L Hgb 13.3 L Hct 39.3 L MCV 94.0 MCH 31.8 MCHC 33.8 RDW 14.1 Plt Count 168 Neut % (Auto) 50.3 Lymph % (Auto) 37.0 [place] % (Auto) 8.7 Eos % (Auto) 3.0 Baso % (Auto) 1.0 Neut # (Auto) 2900 Lymph # (Auto) 2100 [place] # (Auto) 500 Eos # (Auto) 200 Baso # (Auto) 100 PT INR APTT Sodium 134 L Potassium 4.2 Chloride 106 Carbon Dioxide 25 BUN 18 Creatinine 0.88 Estimated GFR > 60 BUN/Creatinine Ratio 20.5 Glucose 108 Hemoglobin A1c 5.5 Calcium 9.0 Magnesium Total Bilirubin AST ALT Alkaline Phosphatase Total Creatine Kinase Troponin I NT-Pro-B Natriuret Pep Total Protein Albumin Globulin Albumin/Globulin Ratio Lipase TSH 0.420 L Urine Color Urine Appearance Ur Specific [place] Urine Protein Urine Glucose (UA) Urine Ketones Urine Occult Blood Urine Nitrate Urine Bilirubin Urine Urobilinogen Ur Leukocyte Esterase Urine RBC Urine WBC Ur Squamous Epith Cells Urine Bacteria Ur Culture Indicated? Vol Urine Centrifuged U Opiates 300ng/mL cut Ur Oxycodone Screen Urine Methadone Screen Ur Barbiturates Screen U Tricyclic Antidepress Ur Phencyclidine Scrn Ur Amphetamines Screen U Methamphetamines Scrn Ur MDMA Scrn (Ecstasy) U Benzodiazepines Scrn Urine Cocaine Screen U Marijuana (THC) Screen Urine pH Urine Specific [place] Ethyl Alcohol Ur Creatinine [facility] Medical History Pelvic fracture (1998) Surgical History Hx of hernia repair H/O pelvic surgery (1998) Social History household members: spouse Smoking Status: Never smoker alcohol intake: current Discharge Plan Discharge Plan Patient Disposition: Home Provider Discharge Comment: Followup with Dr. Esa ePdroza 1 week Discharge orders & Medications Prescriptions: New atorvastatin 20 mg Tablet 80 mg PO BEDTIME Qty: 30 0RF clopidogrel 75 mg Tablet 75 mg PO DAILY Qty: 20 0RF aspirin 81 mg Tablet,Delayed Release (Dr/Ec) 81 mg PO DAILY Qty: 30 0RF Continued multivitamin [Daily Multi-Vitamin] Tablet 1 tab PO DAILY cholecalciferol (vitamin D3) [Vitamin D3] 125 mcg (5,000 unit) Tablet 5,000 unit PO DAILY Follow up/Referrals: Esa Pedroza MD [Primary Care Provider] - Visit Report/Discharge Packet Stand Alone Forms: Patient Portal/API, Stroke Signs & Symptoms Discharge Data Primary Care Provider: Esa Pedroza Attending Provider: Jesus Alberto Burrell Admit Date/Time: 09/02/24 16:10 Quality VTE Deep Vein Thrombosis/Pulmonary Embolism Present on Admission: No MIPS - Admit I confirm the patient?s Advance Care Plan is present, Code status is documented, Surrogate decision maker is in patient?s record [If Yes, STOP here]: Yes MIPS - Meds 'Current medications' to include all prescriptions, hqjz-[id number] products, herbals, cannabis/cannabidiol products, and vitamin/mineral/dietary (nutritional) supplements. I have utilized all available resources to obtain, update, or review the patient?s current medications. [If Yes, STOP here]: Yes MIPS - DC The patient has a history of heart transplant or Left Ventricular Assist Device (LVAD). If yes, STOP here.: No The patient has current or prior documentation of left ventricular ejection fraction (LVEF) less than or equal to 40%, or moderate or severely depressed left ventricular systolic function.: No A. The patient was prescribed or already taking an Angiotensin-Converting Enzyme (MANISH) Inhibitor, or Angiotensin Receptor Virgie (ARB).: No B. The patient was prescribed or already taking a beta-virgie. [If Yes to Both A & B, STOP here]: No Patient not prescribed/taking MANISH or ARB, no reason given.: No Patient not prescribed/taking beta-virgie, no reason given.: No PROFEE Charge Codes Discharge inpatient/observation: [id number]
== END 2024-09-03 10:45 | disposition home or self-care (01) ==
LOC: ED 15:05 → AC 16:11
PROVIDERS: Admitting Provider Hospitalist; Emergency Provider Emergency Medicine; PCP Family Medicine; Referring Provider Emergency Medicine; Visit Provider Hospitalist
DX: I66.22 Occlusion and stenosis of left posterior cerebral artery (principal); G45.9 Transient cerebral ischemic attack, unspecified
CPT/HCPCS: 36415; 70450; 70496; 70498; 70551; 71045; 80048; 80053; 80305; 80320; 81001; 82550; 82962; 83036; 83690; 83735; 83880; 84443; 84484; 85025; 85610; 85730; 93005; 93010; 93306; 96372; 99285; G0378; J1644; Q9967